=== PATIENT | female | born 1965 ===

== ENCOUNTER 2017-07-18 13:45 | Inpatient (IN) | payer OTHER ==
[~2017-07-18] VITALS: Ht 152.4 cm; Wt 67.1 kg
[2017-07-18] MEDS ORDERED: SYNTHROID75 MCG PO (15:00)
[2017-07-24] MEDS ORDERED: MIRALAX17 GM PO (08:32)
[2017-07-24] MEDS ORDERED: NEURONTIN300 MG PO (08:32)
[2017-07-24] MEDS ORDERED: ULTRACET PO (08:32)
[2017-07-24] MEDS ORDERED: AMOX1TAB5 PO (08:33)
== END 2017-07-24 11:51 | disposition home or self-care (01) | DRG 337 ==
LOC: EDSTATUS 13:45 → ADM 13:45 → SURG 07-21 06:20 → O/R 07-21 06:20 → SURG 07-21 07:00
PROVIDERS: Surgery
PROC: 0DNW0ZZ Release Peritoneum, Open Approach (ICD-10-PCS; 2017-07-21)
PROC: 0WJF4ZZ Inspection of Abdominal Wall, Percutaneous Endoscopic Approach (ICD-10-PCS; 2017-07-21)
PROC: 0JX80ZZ Transfer Abdomen Subcutaneous Tissue and Fascia, Open Approach (ICD-10-PCS; 2017-07-21)
PROC: 0WUF0JZ Supplement Abdominal Wall with Synthetic Substitute, Open Approach (ICD-10-PCS; principal; 2017-07-21 07:00)
DX: K43.0 Incisional hernia with obstruction, without gangrene (principal); K42.9 Umbilical hernia without obstruction or gangrene; K66.0 Peritoneal adhesions (postprocedural) (postinfection); R50.82 Postprocedural fever